=== PATIENT | male | born 1995 | race Caucasian/White ===

== ENCOUNTER 2018-05-25 17:43 | Emergency (ER) | payer MEDICAID ==
[~2018-05-25] VITALS: Ht 170.2 cm; Wt 73.7 kg
[2018-05-25 19:18] VITALS: BP 135/63
== END 2018-05-25 19:18 | disposition home or self-care (01) ==
LOC: ED 17:43
DX: M79.671 Pain in right foot (principal); L98.9 Disorder of the skin and subcutaneous tissue, unspecified
CPT/HCPCS: 90715; Q0092